=== PATIENT | male | born 1980 | race Two or more races ===

== ENCOUNTER 2018-10-23 20:47 | Emergency (ER) | payer OTHER ==
[~2018-10-23] VITALS: Ht 175.3 cm; Wt 68.9 kg
== END 2018-10-24 00:45 | disposition home or self-care (01) ==
LOC: ER 20:47
DX: S20.412A Abrasion of left back wall of thorax, initial encounter (principal); S80.812A Abrasion, left lower leg, initial encounter; M54.5 Low back pain; W18.09XA Striking against other object with subsequent fall, initial encounter; Y93.89 Activity, other specified; Y92.89 Other specified places as the place of occurrence of the external cause; Y99.8 Other external cause status

== ENCOUNTER 2023-03-11 18:08 | Emergency (ER) | payer OTHER ==
[~2023-03-11] VITALS: Ht 175.3 cm; Wt 69.9 kg
== END 2023-03-11 20:12 | disposition home or self-care (01) ==
LOC: ER 18:08
DX: R42 Dizziness and giddiness (principal); H10.32 Unspecified acute conjunctivitis, left eye